=== PATIENT | female | born 2000 | race Two or more races ===

== ENCOUNTER 2023-11-09 18:36 | Emergency (ER) | payer MEDICAID ==
[~2023-11-09] VITALS: Ht 154.9 cm; Wt 61.4 kg
[2023-11-09 18:50] VITALS: BP 127/84; PULSE 84; RESP 18; TEMP 99.4
[2023-11-09] MEDS: ACETAMINOPHEN 500 MG TABLET PO ONE (21:41)
== END 2023-11-09 22:40 | disposition home or self-care (01) ==
LOC: EMS 18:36
DX: S09.90XA Unspecified injury of head, initial encounter (principal); W01.198A Fall on same level from slipping, tripping and stumbling with subsequent striking against other object, initial encounter; Y93.89 Activity, other specified; Y92.89 Other specified places as the place of occurrence of the external cause; Y99.8 Other external cause status
CPT/HCPCS: 70450; 99284